=== PATIENT | female | born 1960 | race Caucasian/White ===

== ENCOUNTER → 2018-06-29 | Emergency (ER) | payer OTHER ==
[~2018-06-29] VITALS: Ht 157.5 cm; Wt 74.8 kg
[~2018-06-29] MED LIST: BENTYL10 MG/1 ML; PRILOSEC10 MG; SYNTHROID75 MCG; ZANTAC150 MG
== END | disposition home or self-care (01) ==
LOC: ER 20:24
DX: K29.70 Gastritis, unspecified, without bleeding (principal)

== ENCOUNTER 2025-05-15 19:11 | Emergency (ER) | payer OTHER ==
[~2025-05-15] VITALS: Ht 157.5 cm; Wt 71.7 kg
[2025-05-15 19:16] VITALS: BP 152/83; O2SAT 97
[2025-05-15] MEDS ORDERED: 0.9 % SODIUM CHLORIDE 500 ML IV ONE (20:00)
[2025-05-15] MEDS ORDERED: FAMOTIDINE/PF 20 MG/2 ML VIAL IV ONE (20:00)
[2025-05-15 20:52] LABS: BASO % 0.3 % (0.1-1.2); EOS # 0.16 (0.04-0.54); EOS % 1.9 % (0.7-7.0); LYMPH # 2.61 (1.18-3.74); LYMPH % 30.3 % (19.3-53.1); MEAN PLATELET VOLUME 11.10 fl (9.4-12.4); MONO # 0.84 (0.24-0.82); MONO % 9.8 % (4.7-12.5); NEUT # 4.95 (1.56-6.13); NEUT % 57.5 % (34.0-71.1); RED CELL DISTRIBUTION WIDTH 12.3 % (11.6-14.4)
[2025-05-15 21:19] LABS: ALT/SGPT 21.0 U/L (12-78); AST/SGOT 14.0 U/L (15-37); BILIRUBIN TOTAL 0.4 mg/dL (0.3-1.2); BUN CREA RATIO 13.0 (7.0-25.0); CREATININE SERUM 0.96 mg/dL (0.55-1.02); GFR 58.33; GLOBULINA 3.7 G/DL (2.4-3.5); GLUCOSE FASTING 102.0 mg/dL (65-100); OSMOLALITY SERUM 283.0 MOSM/KG (275-295)
[2025-05-15 22:20] LABS: URINE APPEARANCE Clear; URINE BILIRRUBIN Negative (NEGATIVE); URINE BLOOD Negative; URINE COLOR Yellow; URINE GLUCOSE Negative (NEGATIVE); URINE KETONE Trace (NEGATIVE); URINE LEUKOCYTE Small; URINE NITRATE Negative; URINE PROTEIN Negative (NEGATIVE); URINE UROBILINOGEN 1.0 E.U./dl
[2025-05-15 22:24] LABS: URINE BACTERIA 2026.4 uL (0.0-1933); URINE CAST 0.00 uL (0.0-1.40); URINE EPITHELIAL CELLS 19.6 uL (0.0-38.8); URINE RBC 10.7 uL (0.0-20.8); URINE WBC 49.2 uL (0.0-23.2)
[2025-05-15] MEDS ORDERED: PROBIOTIC1 EAC2 PO (23:58)
[2025-05-15] MEDS ORDERED: CIPRO500 MG PO (23:58)
[2025-05-15] MEDS ORDERED: METRONIDAZOLE500 MG PO (23:58)
[2025-05-15] MEDS ORDERED: PEPCID AC20 MG PO (23:58)
== END 2025-05-16 00:03 | disposition home or self-care (01) ==
LOC: ER 19:11
PROVIDERS: General Practice
DX: K57.32 Diverticulitis of large intestine without perforation or abscess without bleeding (principal); R10.32 Left lower quadrant pain; Z88.6 Allergy status to analgesic agent; N39.0 Urinary tract infection, site not specified
CPT/HCPCS: 36415; 74177; Q9965